=== PATIENT | male | born 2000 | race Caucasian/White ===

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

== ENCOUNTER 2021-02-13 16:50 | Emergency (ER) | payer OTHER, SELFPAY ==
[2021-02-13 16:54] VITALS: BP 156/83; PULSE 95; RESP 16; TEMP 36.9; O2SAT 99
--- NOTE | 2021-02-13 16:58 | ED.URI ---
HPI - URI/Sore Throat General Chief Complaint: Upper Respiratory Infection Stated Complaint: Headache/Cough/Congestion Time Seen by Provider: 02/13/21 16:58 Source: patient, RN notes reviewed and old records reviewed Mode of arrival: ambulatory Limitations: no limitations History of Present Illness HPI Narrative: 20-year-old male who presents to [facility] with complaints of headache, sweats, and sore throat since yesterday. Patient has no cough or any nasal drainage, states no known fevers,.Patient has been COVID and Flu vaccinated but states that he lives with his father and his father tested positive for COVID yesterday. Patient states that he has taken Tylenol and Ibuprofen for his symptoms. He states that throat has increased discomfort with swallowing.. MD elicited complaint: sore throat and other (headache) Related Data Home Medications Medication Instructions Recorded Confirmed No Home Medications 09/25/19 02/13/21 Allergies Allergy/AdvReac Type Severity Reaction Status Date / Time No Known Allergies Allergy Unknown Verified 02/13/21 17:02 Review of Systems Review of Systems: CONSTITUTIONAL: Denies fever, chills,positive for sweats. EYES: Denies visual changes, redness, or discharge. ENT: Denies rhinorrhea, congestion, positive for sore throat, no otalgia. CARDIOVASCULAR: Denies chest pain, palpitations, or edema. RESPIRATORY: Positive for cough denies dyspnea. GASTROINTESTINAL: Denies abdominal pain, nausea, vomiting, or diarrhea. GENITOURINARY: Denies dysuria or hematuria. SKIN: Denies rash or itching. MUSCULOSKELETAL: Denies back pain, joint pain, or myalgia. NEUROLOGIC: Positive for headache,no numbness, or weakness. PSYCHIATRIC: Denies anxiety or depression. All systems reviewed & are unremarkable except as noted in HPI and below [facility] Past Medical History Medical History (Updated 02/14/21 @ 00:00 by Geronimo Archibald) Strep pharyngitis Tracheal stenosis Surgical History Surgical History (Updated 02/14/21 @ 20:56 by Earline Newell NP) No history of previous surgery Family History Family History (Updated 02/13/21 @ 17:32 by Earline Newell NP) Other Cancer Cerebrovascular accident Social History Social History (Updated 02/13/21 @ 17:34 by Earline Newell NP) Tobacco type: e-cigarettes/vaping Substance use: never Living arrangements: with family Gender identity (if verbalized by the patient): Male Comments At time of signature, agree with nursing past medical, surgical, social and family history. There is no relevant family history pertinent to the presenting complaint Exam Narrative: GENERAL: Well-appearing, well-nourished, and in no acute distress. HEAD: Normocephalic, atraumatic. EYES: PERRLA and EOMI. ENT: Nares clear, no rhinorrhea or epistaxis. Mucous membranes moist. NECK: Supple.no lymphadenopathy CHEST: Clear to auscultation. No respiratory distress. dry cough with no tachypnea SAO2 99% on room air. HEART: Regular rate and rhythm. No murmur heard. Normal peripheral pulses. ABDOMEN: Soft, nontender, nondistended, normal active bowel sounds. EXTREMITIES: Normal range of motion. No edema. SKIN: Warm, dry, no rash. NEURO: No focal deficits. Alert and oriented x3. Course Vital Signs Vital signs: Vital Signs Temperature 36.9 C 02/13/21 16:54 Pulse Rate 95 02/13/21 16:54 Respiratory Rate 16 02/13/21 16:54 Blood Pressure 156/83 H 02/13/21 16:54 Pulse Oximetry 99 02/13/21 16:54 Temperature 36.9 C 02/13/21 17:04 Pulse Rate 95 02/13/21 17:04 Respiratory Rate 16 02/13/21 17:04 Blood Pressure 156/83 H 02/13/21 17:04 Pulse Oximetry 99 02/13/21 17:04 MDM - URI/Sore Throat Differential Diagnosis Differential diagnosis: Likely upper respiratory infection, sinusitis, viral infection, pharyngitis and other (Strep pharyngitis, exposure to COVID) Medical Records Attestation: I reviewed the patient's medical records. Lab
[2021-02-13 17:04] VITALS: BP 156/83; PULSE 95; RESP 16; TEMP 36.9; O2SAT 99
== END 2021-02-13 17:32 | disposition home or self-care (01) ==
PROVIDERS: Emergency Provider Registered Nurse
DX: J02.9 Acute pharyngitis, unspecified (principal); Z20.822 Contact with and (suspected) exposure to COVID-19
CPT/HCPCS: 87081; 87426; 87880; 99213; C9803; G0463

== ENCOUNTER 2022-01-18 15:22 | Emergency (ER) | payer BC, SELFPAY ==
--- NOTE | ~2022-01-18 | XR_ITS ---
EXAM: XR hand RT min 3V DATE: 01/18/2022 15:47 HISTORY: PUNCHED A PIECE OF WOOD 01/15/22. SWELLING. . COMPARISON: None available. FINDINGS: Normal mineralization. Very subtle transversely oriented lucency at the junction of the mi ddle and distal thirds of the fifth metacarpal shaft. No lytic or blastic lesion. Joint spaces are ma intained. No erosion or periosteal change. Soft tissues within normal limits. IMPRESSION: Very subtle linear lucency in the distal left fifth metacarpal shaft which may represent a nondisplaced fracture or artifact. Correlate with pain/tenderness. Reviewed, dictated and finalized at location K. [facility] [employer]IST[employer] [facility] IMPRESSION: Very subtle linear lucency in the distal left fifth metacarpal shaf t which may represent a nondisplaced fracture or artifact. Correlate with pain/ tenderness.
[2022-01-18 15:30] VITALS: BP 143/62; PULSE 91; RESP 14; TEMP 37; O2SAT 98
[2022-01-18 15:36] VITALS: BP 143/62; PULSE 91; RESP 14; TEMP 37; O2SAT 98
--- NOTE | 2022-01-18 16:35 | ED.UPPEXIN ---
HPI - Extremity Injury (Upper) General Chief Complaint: Extremity Injury, Upper Stated Complaint: right hand injury Time Seen by Provider: 01/18/22 16:35 Source: patient, RN notes reviewed and old records reviewed Mode of arrival: ambulatory Limitations: no limitations History of Present Illness HPI narrative: 21-year-old male presents to the [facility] with complaints of right hand pain since Tuesday. States Punched a piece of wood last week. Still having pain to the dorsal aspect 5th metacarpal mild swelling noted. Full range of motion noted. Pain with complete straightening of the 4th and 5th phalanges. Tenderness along the 5th metacarpal Related Data Home Medications Medication Instructions Recorded Confirmed buspirone 10 mg tablet 10 mg PO DAILY 01/18/22 01/18/22 Allergies Allergy/AdvReac Type Severity Reaction Status Date / Time No Known Allergies Allergy Unknown Verified 01/18/22 15:34 Review of Systems Review of Systems: All systems reviewed & are unremarkable except as noted in HPI and below Constitutional: Constitutional: Reports no additional constitutional complaints, Denies body ache(s), Denies chills, Denies fever(s) and Denies headache(s) Eyes: Eyes: Reports no additional eye complaints ENT: Reports system reviewed and no additional complaints, except as documented and Denies headache(s) Cardiovascular: Cardiovascular: Reports no additional cardiovascular complaints, Denies chest pain and Denies dyspnea Respiratory: Respiratory: Reports no additional respiratory complaints and Denies dyspnea Gastrointestinal: Gastrointestinal: Reports no additional gastrointestinal complaints and Denies abdominal pain Musculoskeletal: Musculoskeletal: Reports as per HPI Integumentary/Breasts: Skin/Breast: Reports system reviewed and no additional complaints, except as docu Neurologic: Reports system reviewed and no additional complaints, except as documented and Denies headache(s) Psychiatric: Psychiatric: Reports no additional psychiatric complaints Allergic/Immunologic: Allergic/Immunologic: Reports no additional allergic/immunologic complaints PMFSH Past Medical History Medical History Strep pharyngitis Tracheal stenosis Surgical History Surgical History No history of previous surgery Family History Family History Other Cancer Cerebrovascular accident Social History Social History Tobacco type: e-cigarettes/vaping Substance use: never Gender identity (if verbalized by the patient): Male Comments At the time of my signature, I reviewed and agree with the nursing past medical, surgical, social, and family history. There is no relevant family history pertinent to the patient complaint. Exam Const: General: cooperative, healthy appearing, comfortable, no acute distress, well developed, alert and well nourished Nutritional Appearance: well nourished Orientation/consciousness: patient oriented x3 Limitations: no limitations HENMT: Head: normal to inspection Ears: external ears normal Face/Nose/Sinus: Normal external nose present, Normal nares present, Normal nasal mucous membranes and turbinates present and normal facial exam Face and sinus: normal facial exam Mouth: Yes Normal oral and palatal mucosa present, Yes lip normal and Yes moist mucous membranes abnormal Eyes: General: appearance normal, both eyes and all related structures Alignment and Position: alignment normal Pupils: Equal, round and reactive pupils present Neck: Neck: normal visual inspection, full ROM, no lymphadenopathy and no meningeal signs Chest: Chest palpation & inspection: normal inspection of the chest Resp: Effort & Inspection: normal respiratory effort and no use of accessory muscles
== END 2022-01-18 17:13 | disposition home or self-care (01) ==
PROVIDERS: Emergency Provider Nurse Practitioner; PCP Internal Medicine
DX: S62.306A Unspecified fracture of fifth metacarpal bone, right hand, initial encounter for closed fracture (principal); F17.209 Nicotine dependence, unspecified, with unspecified nicotine-induced disorders; W22.09XA Striking against other stationary object, initial encounter
CPT/HCPCS: 73130; 99213; A4565; G0463

== ENCOUNTER 2022-04-07 10:17 | Emergency (ER) | payer BC, SELFPAY ==
[2022-04-07 10:21] VITALS: BP 155/87; PULSE 120; RESP 16; TEMP 38.1; O2SAT 98
--- NOTE | 2022-04-07 10:21 | ED.URI ---
HPI - URI/Sore Throat General Stated Complaint: sore throat Time Seen by Provider: 04/07/22 10:21 Source: patient and RN notes reviewed History of Present Illness HPI Narrative: Patient is a 21-year-old male who presents to urgent care with complaints of sore throat, fever and vomiting. Patient states that it started yesterday yesterday and he woke up with a fever at 1:30 a.m. in the morning. Patient states he has been taking Tylenol and ibuprofen. No other acute complaints. No acute distress noted. Patient aware of the plan of care. Some parts of this dictation were generated by voice recognition software and may contain typographical and/or grammatical inaccuracies. Related Data Home Medications Medication Instructions Recorded Confirmed buspirone 10 mg tablet 10 mg PO DAILY 01/18/22 01/18/22 Allergies Allergy/AdvReac Type Severity Reaction Status Date / Time No Known Allergies Allergy Unknown Verified 01/18/22 15:34 Review of Systems Review of Systems: CONSTITUTIONAL: Reports of fever EYES: Denies visual changes, redness, or discharge. ENT: Denies rhinorrhea, congestion, otalgia. Reports a sore throat CARDIOVASCULAR: Denies chest pain, palpitations, or edema. RESPIRATORY: Denies cough or dyspnea. GASTROINTESTINAL: Denies abdominal pain, nausea, vomiting, or diarrhea. GENITOURINARY: Denies dysuria or hematuria. SKIN: Denies rash or itching. MUSCULOSKELETAL: Denies back pain, joint pain, or myalgia. NEUROLOGIC: Denies headache, numbness, or weakness. All other systems reviewed are negative, except as documented in HPI. [facility] Past Medical History Medical History Strep pharyngitis Tracheal stenosis Surgical History Surgical History No history of previous surgery Family History Family History Other Cancer Cerebrovascular accident Social History Social History Tobacco type: e-cigarettes/vaping Substance use: never Living arrangements: with family Gender identity (if verbalized by the patient): Male Comments At the time of my signature, I reviewed and agree with the nursing past medical, surgical, social, and family history. There is no relevant family history pertinent to the patient complaint. Exam Narrative: GENERAL: This is a well-nourished, well-developed patient, in no apparent distress. HEAD: normocephalic, atraumatic. EYES: PERRL. Sclera clear/white. Vision is grossly intact. EARS: External ears normal, auditory canals clear and without drainage, TMs normal without perforation. Hearing grossly intact. NOSE: External nose normal with no obvious nasal discharge, nares without redness, no rhinorrhea. THROAT: Mucous membranes moist, moderate erythema to posterior pharynx with mild bilateral tonsillar edema with exudate. Postnasal drainage. NECK: Neck supple, non-tender without lymphadenopathy CARDIOVASCULAR: Regular rate and rhythm without murmurs, gallops, or rubs. RESPIRATORY: Clear to auscultation. Breath sounds equal bilaterally. No wheezes, rales, or rhonchi. SKIN: warm, intact with no suspicious lesions or rash, good texture and turgor. NEURO: awake, alert, and oriented to person, place and time. There were no obvious focal neurologic abnormalities. EXTREMITIES: No clubbing, cyanosis, or edema. Course Course Level of Care: Express Care Visit Vital Signs Vital signs: Vital Signs Temperature 100.5 F H 04/07/22 10:21 Pulse Rate 120 H 04/07/22 10:21 Respiratory Rate 16 04/07/22 10:21 Blood Pressure 155/87 H 04/07/22 10:21 Pulse Oximetry 98 04/07/22 10:21 Oxygen Delivery Room Air 04/07/22 10:21 Temperature 100.5 F H 04/07/22 10:21 Pulse Rate 120 H 04/07/22 10:21 Respiratory Rate 16 04/07/22 10:21 Blood Pressure 155/87 H 04/07/22 1
== END 2022-04-07 11:40 | disposition home or self-care (01) ==
PROVIDERS: Emergency Provider Nurse Practitioner Family; PCP Internal Medicine
DX: J02.0 Streptococcal pharyngitis (principal); F17.290 Nicotine dependence, other tobacco product, uncomplicated
CPT/HCPCS: 87880; 99213; G0463